=== PATIENT | male | born 1970 | race African-American/Black ===

== ENCOUNTER 2017-01-11 02:50 | Emergency (ER) | payer BC, OTHER ==
[~2017-01-11] VITALS: Ht 177.8 cm; Wt 68.0 kg
[~2017-01-11 02:50] MED LIST: AMLO1CAP2 PO
[2017-01-11] MEDS ORDERED: AMLO10TA2 PO (03:09)
--- NOTE | 2017-01-11 05:07 | NUR ---
Patient discharged to home in stable conditon. Written and verbal after care instructions given. Patient verbalizes understanding of instructions. walked out of ER with steady gait.No distress noted
== END 2017-01-11 05:08 | disposition home or self-care (01) ==
LOC: ER 02:53
DX: H00.012 Hordeolum externum right lower eyelid (principal); I10 Essential (primary) hypertension; F12.10 Cannabis abuse, uncomplicated
CPT/HCPCS: 99283; A4663